=== PATIENT | female | born 1995 | race Caucasian/White ===

== ENCOUNTER → 2017-03-11 | Outpatient (CLI) | payer BC ==
--- NOTE | 2017-03-11 21:26 | MR ---
EXAMINATION TYPE: MR brain wo con DATE OF EXAM: 03/11/2017 COMPARISON: NONE HISTORY: Anosmia, R/O mass. TECHNIQUE: Multiplanar, multisequence imaging of the brain and brainstem is performed without IV cont rast. Exam is performed without contrast as patient refused. FINDINGS: Diffusion weighted images demonstrate no evidence of a recent infarct or other diffusion abnormality. There is no extraaxial fluid collection or significant white matter signal abnormality. The ventricu lar system and cisternal spaces are normal in size and appearance. The brain volume is age appropria te. Midline structures demonstrate normal morphology. The craniocervical junction appears within normal limits. Normal vascular flow voids are present. Some artifact degradation is present on axial images. There are mucous retention cysts or polyps in the inferior aspect of both maxillary sinuses, right l arger than left seen best coronal image 7. The visualized sinuses are otherwise clear and the globes are intact. IMPRESSION: No suspicious finding is seen to account for patient's symptoms.
== END ==
LOC: RADMRIMAIN 16:11
PROVIDERS: ATTEND Otolaryngology
DX: R43.0 Anosmia (principal)
CPT/HCPCS: 70551